=== PATIENT | female | born 1965 | race Caucasian/White ===

== ENCOUNTER → 2016-12-24 | Day surgery (SDC) | payer BC ==
[~2016-12-24] VITALS: Ht 165.1 cm; Wt 90.0 kg
[~2016-12-24] MED LIST: ACETYLCHOLINE CHL OPHT SOLN 1:100 2 ML VIAL ONE; BUPIVACAINE HCL PF 0.5% 30 ML VIAL ONE; DEXAMETHASONE SOD PHOS 4 MG/ML VIAL ONE; DEXT 5%-NACL 0.45% 1000 ML INJ 1,000 ML IV SCH; EPINEPHrine HCL (1:1000) 1 MG/ML VIAL ONE; IBUP800T23 PO; KETOROLAC TROMETHAMINE 60 MG/2 ML (IM) VIAL IM ONE; LACTATED RINGER'S 1000 ML INJ 1,000 ML ONE; LINA145C PO; LINESS PO; MIDAZOLAM HCL 2 MG/2 ML VIAL ONE; NORC5TAB PO; OMEP20TA PO; ONDANSETRON HCL 4 MG/2 ML VIAL IV PUSH ONE; PILOCARPINE HCL 2% OPHT SOLN 15 ML BTL ONE; PROPOFOL 200 MG/20 ML AMP IV ONE; SODIUM CHLORIDE 0.9% FLUSH 5 ML FLUSH IVF PRN; SODIUM CHLORIDE 0.9% FLUSH 5 ML FLUSH IVF SCH; TOBRAMYCIN/DEXAMETHASONE OPTH OINT 3.5 GM TUBE ONE; ceFAZolin 2 GM PREMIX 50 ML ONE
[2016-12-24 06:46] VITALS: BP 113/68; PULSE 60; RESP 16; TEMP 97.6; O2SAT 97
[2016-12-24 06:56] LABS: HEMATOCRIT 37.2 % (35.0-46.0); MEAN CORPUSCULAR HEMOGLOBIN 28.2 PG (27.0-34.0); MEAN CORPUSCULAR HGB CONC 32.8 % (32.0-36.0); PLATELET COUNT 263 TH/MM3 (150-450); RED BLOOD COUNT 4.33 MIL/MM3 (4.00-5.30); RED CELL DISTRIBUTION WIDTH 12.1 % (11.6-17.2); REVIEW FLAG FINAL; WHITE BLOOD COUNT 4.8 TH/MM3 (4.0-11.0)
--- NOTE | 2016-12-24 07:59 | HP.UPD ---
H&P Update Date: Dec 24, 2016 Note The Pre-Admit History and Physical Examination regarding the above named patient was reviewed (including, but not limited to, vital signs, medications, allergies, co-morbid conditions), and upon re-examination it is noted that: Indicated with "X" x - the patient's condition has not significantly changed since the last examination. [] - the patient's condition has changed since the last examination. Changes: Kelly Pat MD Dec 24, 2016 07:59
[2016-12-24 09:00] VITALS: PULSE 64
--- NOTE | 2016-12-24 09:04 | HHI.PR ---
Immediate Post Op Note Procedure Date: Dec 24, 2016 Pre Op Diagnosis: (1) Carpal tunnel syndrome Post Op Diagnosis: (1) Carpal tunnel syndrome Surgeon: Kelly Pat Digital Cartographer(s): None Procedure: Endoscopic release of the right carpal tunnel. Anesthesia: General Drains: None Tourniquet time (min at mmHg) 19 minutes using the Hemoclear Patient to: PACU Patient Condition: Good Date/Time of Procedure: SEE SURGICAL CARE RECORD Kelly Pat MD Dec 24, 2016 09:04
[2016-12-24 09:45] VITALS: PULSE 57; TEMP 97.6
[2016-12-24 10:15] VITALS: BP 113/68; PULSE 58; RESP 14; O2SAT 98
--- NOTE | 2016-12-24 14:22 | EKG ---
Date Performed: 12/24/2016 Time Performed: 07:09:54 PTAGE: 51 years EKG: Sinus bradycardia. Prolonged QT interval Possible anterior infarct - age undetermined Abnor mal ECG NO PREVIOUS TRACING DOCTOR: Frankie Dean Interpretating Date/Time 12/24/2016 14:19:32
--- NOTE | 2016-12-24 15:31 | MP ---
cc: TABBY DAVIS M.D. DATE OF SURGERY: 12/24/2016 PREOPERATIVE DIAGNOSIS Right carpal tunnel syndrome. POSTOPERATIVE DIAGNOSIS Right carpal tunnel syndrome. PROCEDURE Endoscopic release of the right carpal tunnel. ANESTHESIA General. SURGEON Dr. Davis INDICATIONS A 51-year-old female with right carpal tunnel syndrome for release. FINDINGS At the completion of the procedure the transverse carpal ligament had been completely divided. TOURNIQUET TIME 19 minutes using a HemaClear. DETAILS OF PROCEDURE The patient was seen preoperatively where the site and side were identified and marked. The patient was then taken to the operating room, placed in a supine position. Her identity was checked against the arm band and the consent form, site and side confirmed. A timeout was called prior to beginning the procedure. The right upper extremity was prepped with Hibiclens and draped in the usual sterile fashion. The area to be incised was outlined with a marking pen as a transverse incision in the distal forearm 1.5 cm proximal to the distal wrist crease. The distal edge of the transverse carpal ligament was identified and marked. The arm was then simultaneously exsanguinated and a tourniquet placed using the HemaClear. A #15 blade was used to make a transverse incision in the distal forearm down through skin down to the subcutaneous tissue. Under loupe magnification using the spread technique the forearm fascia was identified and held elevated. A synovial elevator was then used to identify the transverse carpal ligament as well as clean the synovium from it. The obturator cannula apparatus was then introduced into the wound and then just distal to the transverse carpal ligament popped through the palmar fascia into the subcutaneous plane where a separate incision was made. The entire apparatus was delivered. The obturator was removed leaving the cannula in place. The scope was then passed from distal to proximal identifying the transverse carpal ligament. Then under direct vision using the scope the transverse carpal ligament was divided. Photos were taken. The obturator was then placed back into the cannula and the entire apparatus was removed. The forearm fasciotomy was then carried out for 2 or 3 cm proximal to the distal wrist incision. The wounds were then infiltrated with bupivacaine 0.5% plain and closed with Dermabond. Once the glue had dried in several layers Steri-Strips were applied. The tourniquet was removed after 19 minutes of tourniquet time. Pressure was applied. After several minutes there was no evidence of any oozing. A dressing was applied using 4x4s and hand wrap. The patient was then taken from the operating room to the recovery room in satisfactory condition having tolerated the procedure well. Postoperative instructions include keeping the arm elevated, keeping it clean and dry, and returning in several days for follow-up. She was given a prescription for ibuprofen 800. MD JODI Prince/ADOLFO /9:10 AM /3:25 PM
== END | disposition home or self-care (01) ==
LOC: PHSDC 06:08
PROVIDERS: ATTEND Specialist
DX: G56.01 Carpal tunnel syndrome, right upper limb (principal); R94.31 Abnormal electrocardiogram [ECG] [EKG]
CPT/HCPCS: 01810; 29848; 85027; 93005; J0171; J0690; J1100; J2250; J3010; J7120; 36415; J1885; J2405

== ENCOUNTER → 2017-02-18 | Day surgery (SDC) | payer BC ==
[~2017-02-18] VITALS: Ht 165.1 cm; Wt 88.5 kg
[~2017-02-18] MED LIST changes: -ACETYLCHOLINE CHL OPHT SOLN 1:100 2 ML VIAL ONE; -DEXAMETHASONE SOD PHOS 4 MG/ML VIAL ONE; -EPINEPHrine HCL (1:1000) 1 MG/ML VIAL ONE; +FAMOTIDINE 20 MG/2 ML VIAL ONE; -KETOROLAC TROMETHAMINE 60 MG/2 ML (IM) VIAL IM ONE; -LINESS PO; +MORPHINE SULFATE 4 MG/ML INJ ONE; -ONDANSETRON HCL 4 MG/2 ML VIAL IV PUSH ONE; +ONDANSETRON HCL 4 MG/2 ML VIAL ONE; -PILOCARPINE HCL 2% OPHT SOLN 15 ML BTL ONE; +POVIDONE IODINE 10% OINT 1 PACKET TOPICAL ONE; -SODIUM CHLORIDE 0.9% FLUSH 5 ML FLUSH IVF SCH; -TOBRAMYCIN/DEXAMETHASONE OPTH OINT 3.5 GM TUBE ONE
[2017-02-18 06:37] VITALS: BP 135/88; PULSE 60; RESP 18; TEMP 97.5; O2SAT 97
[2017-02-18 06:49] LABS: HEMATOCRIT 37.5 % (35.0-46.0); MEAN CELL VOLUME 85.7 FL (80.0-100.0); MEAN CORPUSCULAR HEMOGLOBIN 28.4 PG (27.0-34.0); MEAN CORPUSCULAR HGB CONC 33.2 % (32.0-36.0); PLATELET COUNT 264 TH/MM3 (150-450); RED BLOOD COUNT 4.37 MIL/MM3 (4.00-5.30); RED CELL DISTRIBUTION WIDTH 12.4 % (11.6-17.2); REVIEW FLAG FINAL; WHITE BLOOD COUNT 3.8 TH/MM3 (4.0-11.0)
--- NOTE | 2017-02-18 07:50 | HP.UPD ---
H&P Update Date: February 18, 2017 Note The Pre-Admit History and Physical Examination regarding the above named patient was reviewed (including, but not limited to, vital signs, medications, allergies, co-morbid conditions), and upon re-examination it is noted that: Indicated with "X" x - the patient's condition has not significantly changed since the last examination. [] - the patient's condition has changed since the last examination. Changes: Kelly Pat MD February 18, 2017 07:50
--- NOTE | 2017-02-18 09:32 | HHI.PR ---
Immediate Post Op Note Procedure Date: February 18, 2017 Pre Op Diagnosis: (1) Left carpal tunnel syndrome (2) Cubital tunnel syndrome Post Op Diagnosis: (1) Cubital tunnel syndrome (2) Left carpal tunnel syndrome Surgeon: Kelly Pat Board Certified Music Therapist(s): None Procedure: Open release of the left cubital tunnel. Endoscopic release of the left carpal tunnel. Anesthesia: General Drains: None Tourniquet time (min at mmHg) 53 minutes at 220 mm Hg. Patient to: PACU Patient Condition: Good Date/Time of Procedure: SEE SURGICAL CARE RECORD Kelly Pat MD February 18, 2017 09:32
[2017-02-18 10:48] VITALS: BP 120/76; PULSE 57; RESP 16; TEMP 97.9; O2SAT 98
--- NOTE | 2017-02-18 11:53 | MP ---
cc: TABBY DAVIS M.D. DATE OF SURGERY 02/18/2017 PREOPERATIVE DIAGNOSES 1. Left carpal tunnel syndrome. 2. Left cubital tunnel syndrome. POSTOPERATIVE DIAGNOSES 1. Left carpal tunnel syndrome. 2. Left cubital tunnel syndrome. PROCEDURE 1. Endoscopic release of the left carpal tunnel. 2. Open release of left cubital tunnel. ANESTHESIA General. SURGEON Dr. Davis INDICATIONS The patient is a 51-year-old female with history of carpal and cubital tunnel symptoms. FINDINGS The patient definitely had compression at both the elbow and the carpal tunnel. At the completion of the procedure, both tunnels were released. TOURNIQUET TIME 53 minutes. PROCEDURE The patient was seen preoperatively where the sites and side were identified and marked. The patient was then taken to the operating room, placed in a supine position. Her identity was checked against the arm band and the consent form, site and side confirmed, time-out called prior to beginning the procedure. The left upper extremity was prepped with Hibiclens and draped in the usual sterile fashion. The areas to be incised were outlined with a marking pen as a longitudinal incision over the cubital tunnel. In addition an incision was designed 1.5 cm proximal to the distal wrist crease to the ulnar side of the palmaris longus. The distal edge of the transverse carpal ligament was identified in the palm and marked. The arm was then exsanguinated and the tourniquet inflated to 220 mmHg. Attention was first turned to the elbow where the incision was made down through the skin, down to the subcutaneous tissue. Under loupe magnification using sharp and blunt dissection superficial vessels and nerves were identified and retracted. The cubital tunnel was identified and the fascia over the nerve was opened and released proximally. It was then released distally all the way to the flexor muscle mass. It was noted that there was swelling proximal to the cubital tunnel and there was definite evidence of compression. Once the nerve was released, the wound was irrigated copiously and infiltrated with bupivacaine 0.5% plain. The wound was then closed in layers with 3-0 Vicryl and 4-0 Prolene to the skin in a subcuticular fashion. Attention was then turned to the hand where a new 15 blade was used make the transverse incision in the distal forearm, down through the skin, down through the subcutaneous tissue. Using blunt dissection, the forearm fascia was identified and entered. It was then elevated. The synovial elevator was then used to identify the transverse carpal ligament as well as clean the synovium from it. The obturator cannula apparatus was then introduced into the wound and, then just distal to the transverse carpal ligament, popped through the palmar fascia into the subcutaneous plane where separate incision was made and the entire apparatus was delivered. The obturator was removed leaving the cannula in place. The scope was then passed from distal to proximal identifying the transverse carpal ligament. Then under direct vision using the scope the transverse carpal ligament was divided. Photos were taken. The obturator was then placed back into the cannula and the entire apparatus was removed. A forearm fasciotomy was then carried out for 2 or 3 cm proximal to the distal wrist incision. The areas were then infiltrated with bupivacaine and the wound was closed with Dermabond. Once the glue had dried in several layers, Steri-Strips were applied. Dressings were applied to both wounds, povidone-iodine ointment to the stitches along with Adaptic, Telfa, 4x4s and hand wrap and 4x4s and hand wrap to the carpal tunnel incision. The tourniquet was released after 53 minutes of tourniquet time. Pressure was applied for approximately 7 minutes. The patient was then taken from the operating room to the recovery room in satisfactory condition having tolerated the procedure well. Postoperative instructions include keeping the arm elevated, keeping the area clean and dry and returning in several days for followup. MD JODI Prince/SHEA /9:55 AM /11:45 AM
== END | disposition home or self-care (01) ==
LOC: PHSDC 06:02
PROVIDERS: ATTEND Specialist
DX: G56.02 Carpal tunnel syndrome, left upper limb (principal); G56.22 Lesion of ulnar nerve, left upper limb
CPT/HCPCS: 29848; 36415; 64718; 85027; J0690; J2250; J2270; J2405; J3010; J7120